=== PATIENT | female | born 1980 | race Caucasian/White ===

== ENCOUNTER 2017-03-27 17:58 | Emergency (ER) | payer MEDICARE, MEDICAID ==
[~2017-03-27] VITALS: Ht 152.4 cm; Wt 56.0 kg
[2017-03-27 18:03] VITALS: BP 131/89; PULSE 100; RESP 20; TEMP 98.2; O2SAT 100
[2017-03-27] MEDS ORDERED: CYAN1TAB24 (18:26)
[2017-03-27] MEDS ORDERED: AMLO5 PO (18:26)
[2017-03-27] MEDS ORDERED: TACR5 PO (18:26)
[2017-03-27] MEDS ORDERED: ZOLO100T PO (18:26)
[2017-03-27] MEDS ORDERED: XANA1TAB2 PO (18:26)
[2017-03-27] MEDS ORDERED: NEUR300C PO (18:26)
[2017-03-27] MEDS ORDERED: LEVEMIR SQ (18:26)
[2017-03-27] MEDS ORDERED: MAGNCAP2 PO (18:26)
[2017-03-27] MEDS ORDERED: ZETI10TA5 PO (18:26)
[2017-03-27] MEDS ORDERED: HYDR-3583 PO (18:26)
[2017-03-27] MEDS ORDERED: VALS1TAB64 PO (18:26)
[2017-03-27] MEDS ORDERED: SIRO2 PO (18:26)
[2017-03-27] MEDS ORDERED: PRED5TAB PO (18:26)
[2017-03-27] MEDS ORDERED: METO100T9 PO (18:26)
[2017-03-27] MEDS ORDERED: AMIT25TA9 PO (18:26)
[2017-03-27] MEDS ORDERED: TETANUS/DIPHTHERIA TOXOID ADULT 0.5 ML VIAL IM ONE (18:30)
[2017-03-27] MEDS ORDERED: DOXY100C PO (18:33)
[2017-03-27] MEDS ORDERED: CEPH-460 PO (18:33)
--- NOTE | 2017-03-27 18:42 | PD ---
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 Patient [place] a fishing hook randomly cut her left arm. Patient does not know where the hook came from. She immediately went home and soaked the wound and hydrogen peroxide before applying a bandage. Because patient is on antirejection medications and immunocompromise, she has concern for infection. There is no increased warmth, drainage, pain, redness, or induration at this time. Unknown last tetanus. Patient reports she had serum creatinine drawn 4 days ago and her level was 1.3. PFSH Past Medical History Cardiomyopathy: Yes Cardiovascular Problems: Yes (cardiomyopathy) Diabetes: Yes Patient Takes Glucophage: No Diminished Hearing: No Medical other: Yes (Neuropathy, Fabry's Disease) ?: Not LMP: irregular Past Surgical History Other Surgery: Yes (Kidney transplant, infusa port) Social History Alcohol Use: No Tobacco Use: No Substance Use: No Allergies-Medications (Allergen,Severity, Reaction): Coded Allergies: Clindamycin (Verified Allergy, Unknown, cdiff, 03/27/17) Gentamicin (Verified Allergy, Unknown, hives, 03/27/17) Levaquin (Verified Allergy, Unknown, bone pain, 03/27/17) Venofer (Verified Allergy, Unknown, hives, 03/27/17) Reported Meds & Prescriptions Reported Meds & Active Scripts Active Keflex (Cephalexin) 500 Mg Capsule 500 Mg PO Q6H 7 Days Doxycycline Hyclate 100 Mg Cap 100 Mg PO BID Reported Levemir Inj (Insulin Detemir) 1,000 unit/ 10 ML Vial 1 Units SQ Do not mix with any other Insulin. Hydrocodone-Acetaminophen 10-325 mg Tab 1 Tab PO Q4H PRN Zoloft (Sertraline HCl) 100 Mg Tab 100 Mg PO BID Xanax (Alprazolam) 1 Mg Tab 1 Mg PO Q8H PRN Amitriptyline (Amitriptyline HCl) 25 Mg Tab 25 Mg PO HS Zetia (Ezetimibe) 10 Mg Tab 10 Mg PO DAILY Magnesium & Vitamin D (Magnesium Oxide-Cholecalciferol) 500-3,000 Mg-Unit Cap 500 Mg PO TID Neurontin (Gabapentin) 300 Mg Cap 300 Mg PO TID B12 (Cyanocobalamin) 1,000 Mcg Tab Prednisone 5 Mg Tab 5 Mg PO DAILY Metoprolol Succinate ER 24 HR (Metoprolol Succinate) 100 Mg Tab 100 Mg PO DAILY Valsartan 80 Mg Tab 100 Mg PO DAILY Norvasc (Amlodipine Besylate) 5 Mg Tab 5 Mg PO DAILY Rapamune (Sirolimus) 2 Mg Tab 2 Mg PO DAILY Prograf (Tacrolimus) 5 Mg Cap 5 Mg PO BID Review of Systems Except as stated in HPI: all other systems reviewed are Neg Physical Exam Narrative GENERAL: Well-nourished, well-developed female in no acute distress. Afebrile. Ambulatory. SKIN: Focused skin assessment warm/dry. There is a 3 cm superficial skin tear to the left dorsal forearm. No increased edema, erythema, drainage, or lymphangitis. HEAD: Normocephalic. EYES: No scleral icterus. No injection or drainage. NECK: Supple, trachea midline. No JVD or lymphadenopathy. CARDIOVASCULAR: Regular rate and rhythm without murmurs, gallops, or rubs. RESPIRATORY: Breath sounds equal bilaterally. No accessory muscle use. PSYCHIATRIC: No delusional thought processes. No hallucinations. Data Data Last Documented VS Vital Signs Date Time Temp Pulse Resp B/P Pulse Ox O2 Delivery O2 Flow Rate FiO2 03/27/17 18:03 98.2 100 20 131/89 100 Orders Tetanus/Diphtheria Tox Adult (Tetanus/Di (03/27/17 18:30) [facility] Medical Decision Making Medical Screen Exam Complete: Yes Emergency Medical Condition: Yes Medical Record Reviewed: Yes Differential Diagnosis Skin tear, tetanus prophylaxis, abrasion, laceration Narrative Course 37-year-old female with a history of Fabry disease presents to the emergency room for evaluation of a laceration to her left dorsal forearm that occurred earlier today. Patient [place] the beach when a fishing hook from an unknown source snatcher skin. Patient immediately went home and washed and hydrogen peroxide. She is immunocompromised and on antirejection medications and is concerned for infection. Physical exam reveals a 3 cm superficial skin tear to the left dorsal forearm. There is no drainage, erythema, edema, induration, or lymphangitis. Tetanus was updated. Given patient's immunocompromised state, she will be discharged with prescriptions to cover for vibrio and strep in case of infection; it was recommended that she does not start antibiotics unless infection develops. Keflex has renal adjustment and patient's estimated creatinine clearance is 53 which according to manufacturers service representative is safe. Doxycycline has interaction with her magnesium that may decrease doxycycline's effect. Patient was told not to take doxycycline within 2 hours of taking magnesium. Patient was discharged with wound care instructions. She plans to follow up with her primary care physician before starting them. She understands and agrees to plan. Diagnosis Primary Impression: Skin tear of left upper extremity Referrals: Primary Care Physician Patient Instructions: General Instructions, Skin Tear (ED) Additional Instructions: Rest and drink plenty of fluids. If infection develops, start antibiotics. Keep wound clean and dry. Apply topical antibiotics daily. Take doxycycline as directed, until gone. Take this medication 2 hours before or after the magnesium. This medication will make you burn. Avoid the sun while taking this medication. Take Keflex as directed, until gone. Follow up with a primary care physician. Return to emergency room for worsening symptoms, as discussed. Med/Other Pt SpecificInfo: Prescription(s) given Scripts Cephalexin (Keflex)500 Mg [id number] Mg PO Q6H 7 Days Ref 0 Prov:Wilfred Gold MD 03/27/17 Doxycycline Hyclate 100 Mg [id number] Mg PO BID #28 CAP Ref 0 Prov:Wilfred Gold MD 03/27/17 Disposition: 01 DISCHARGE HOME Condition: Stable Radha Mendoza Mar 27, 2017 18:42
== END 2017-03-27 19:12 | disposition home or self-care (01) ==
LOC: PHEFT 17:58
DX: S51.812A Laceration without foreign body of left forearm, initial encounter (principal); W26.8XXA Contact with other sharp object(s), not elsewhere classified, initial encounter; Y92.832 Beach as the place of occurrence of the external cause; Z23 Encounter for immunization; Z94.0 Kidney transplant status; I42.9 Cardiomyopathy, unspecified; E11.9 Type 2 diabetes mellitus without complications; E75.21 Fabry (-Anderson) disease
CPT/HCPCS: 90471; 90714

== ENCOUNTER 2018-04-04 15:45 | Inpatient (IN) | payer MEDICARE, MEDICAID ==
[~2018-04-04] VITALS: Ht 152.4 cm; Wt 44.5 kg
[~2018-04-04 15:45] MED LIST: AMIT25TA9 PO; AMLO5 PO; CEPH-460 PO; CYAN1TAB24; DOXY100C PO; EZET10 PO; HYDR-3583 PO; LEVEMIR SQ; MAGNCAP2 PO; METO1TAB43 PO; NEUR300C PO; PRED5TAB PO; SIRO2 PO; TACR5 PO; VALS1TAB64 PO; XANA1TAB2 PO; ZOLO100T PO
--- NOTE | 2018-04-04 17:16 | PD ---
HPI Chief Complaint: Psychiatric Symptoms Time Seen by Provider: 17:13 Travel History International Travel<30 days: No Contact w/Intl Traveler<30days: No Traveled to known affect area: No History of Present Illness HPI Patient 38-year-old female presents emergency department for evaluation psychiatrically. According to law office manager she is under Starteed act. There is no Starteed act paperwork that the patient presents with. According to patient she was recently admitted to [facility] in [facility] for sepsis. States she was admitted to the ICU and she was septic from a port in her chest. She states that she could not sleep one night and so she ground up some Xanax and put in a syringe and injected herself with it in the bathroom. She states she was just trying to get some sleep because she was sick of everybody else. When asked if she was going to try and kill herself she said no. She did lock herself in the bathroom and she states that they had to break down the door to get to her. She denies any acute physical complaints and states that she only has her "chronic pain". PFSH Past Medical History Cardiomyopathy: Yes Cardiovascular Problems: Yes (cardiomyopathy) Diabetes: Yes Diminished Hearing: No Past Surgical History Other Surgery: Yes (Kidney transplant, infusa port) Social History Alcohol Use: No Tobacco Use: No Substance Use: No Allergies-Medications (Allergen,Severity, Reaction): Coded Allergies: clindamycin (Unverified Allergy, Unknown, cdiff, 05/27/17) ferumoxytol (Unverified Allergy, Unknown, hives, 05/27/17) gentamicin (Unverified Allergy, Unknown, hives, 05/27/17) iron (Unverified Allergy, Unknown, hives, 05/27/17) levofloxacin (Unverified Allergy, Unknown, bone pain, 05/27/17) Reported Meds & Prescriptions Reported Meds & Active Scripts Active Keflex (Cephalexin) 500 Mg Capsule 500 Mg PO Q6H 7 Days Doxycycline Hyclate 100 Mg Cap 100 Mg PO BID Reported Levemir Inj (Insulin Detemir) 1,000 unit/ 10 ML Vial 1 Units SQ Do not mix with any other Insulin. Hydrocodone-Acetaminophen 10-325 mg Tab 1 Tab PO Q4H PRN Zoloft (Sertraline HCl) 100 Mg Tab 100 Mg PO BID Xanax (Alprazolam) 1 Mg Tab 1 Mg PO Q8H PRN Amitriptyline (Amitriptyline HCl) 25 Mg Tab 25 Mg PO HS Zetia (Ezetimibe) 10 Mg Tab 10 Mg PO DAILY Magnesium & Vitamin D (Magnesium Oxide-Cholecalciferol) 500-3,000 Mg-Unit Cap 500 Mg PO TID Neurontin (Gabapentin) 300 Mg Cap 300 Mg PO TID B12 (Cyanocobalamin) 1,000 Mcg Tab Prednisone 5 Mg Tab 5 Mg PO DAILY Metoprolol Succinate ER 24 HR (Metoprolol Succinate) 100 Mg Tab 100 Mg PO DAILY Valsartan 80 Mg Tab 100 Mg PO DAILY Norvasc (Amlodipine Besylate) 5 Mg Tab 5 Mg PO DAILY Rapamune (Sirolimus) 2 Mg Tab 2 Mg PO DAILY Prograf (Tacrolimus) 5 Mg Cap 5 Mg PO BID Review of Systems Except as stated in HPI: all other systems reviewed are Neg Physical Exam Narrative GENERAL: Well-developed well-nourished no obvious distress SKIN: Focused skin assessment warm/dry. HEAD: Atraumatic. Normocephalic. EYES: Pupils equal and round. No scleral icterus. No injection or drainage. ENT: No nasal bleeding or discharge. Mucous membranes pink and moist. NECK: Trachea midline. No JVD. CARDIOVASCULAR: Regular rate and rhythm. No murmur appreciated. RESPIRATORY: No accessory muscle use. Clear to auscultation. Breath sounds equal bilaterally. GASTROINTESTINAL: Abdomen soft, non-tender, nondistended. Hepatic and splenic margins not palpable. MUSCULOSKELETAL: No obvious deformities. No clubbing. No cyanosis. No edema. NEUROLOGICAL: Awake and alert. No obvious cranial nerve deficits. Motor grossly within normal limits. Normal speech. PSYCHIATRIC: Angry mood and angry affect.; insight and judgment normal. Denies suicidal or homicidal ideation. Data Data Last Documented VS Vital Signs Date Time Temp Pulse Resp B/P (MAP) Pulse Ox O2 Delivery O2 Flow Rate FiO2 04/04/18 18:20 63 18 125/66 (85) 99 Room Air Orders Orders Hydromorphone (Dilaudid) (04/04/18 17:20) Zolpidem (Ambien) (04/04/18 21:00) Amlodipine (Norvasc) (04/05/18 09:00) Levetiracetam (Keppra) (04/04/18 21:00) Pantoprazole (Protonix) (04/05/18 09:00) Sertraline (Zoloft) (04/05/18 09:00) Acetamin-Hydrocod 325-10 Mg ([place] 10-32 (04/04/18 17:15) Alprazolam (Xanax) (04/04/18 21:00) Metoprolol Succinate Er (Toprol Xl) (04/05/18 09:00) Gabapentin (Neurontin) (04/04/18 18:00) Prednisone (Deltasone) (04/05/18 09:00) Sirolimus (Rapamune) (04/05/18 09:00) Tacrolimus (Prograf) (04/04/18 21:00) Valsartan (Diovan) (04/05/18 09:00) Diet Regular Basic (04/04/18 Dinner) MDM Medical Decision Making Medical Screen Exam Complete: Yes Emergency Medical Condition: Yes Differential Diagnosis Suicide attempt, substance abuse, poor social circumstance. Narrative Course Patient being room to the emergency department, a copy of the Maldonado act as faxed without the signature portion. States that she tried to kill herself by injecting drugs into her system. The only other paperwork that she arrived with was a discharge packet with a diagnosis of hypoglycemia, there was no other paperwork available for this patient no physician notes. I have asked my infantry unit leader to attempt to reach [facility] for documentation and so far unsuccessful. The patient was discussed with Dr. Chowdary and he states that he accepted this patient for transfer. Carol AGUILAR is still here will evaluate the patient expediently to determine if she meets Maldonado act criteria or not as I do not have a valid Maldonado act at this time. Received notice from [facility] was that Dr. Kasper was the discharging physician cannot be reached as there shift ended prior to the patient arriving here. I have been told that they a service parts driver is bringing over the maldonado act now. None-the less. She has no medical complaints requiring further workup at this time. She has apparently already been medically evaluated at OSH as well. Maldonado act has arrived from OSH. Properly filled out. Further management by psychiatry. Diagnosis Primary Impression: Benzodiazepine overdose Condition: Emanuel Hogue MD Apr 04, 2018 17:16
[2018-04-04] MEDS: GABAPENTIN 300 MG CAP PO SCH (18:00)
[2018-04-04 18:20] VITALS: BP 125/66; PULSE 63; RESP 18; O2SAT 99
--- NOTE | 2018-04-04 19:19 | PD ---
History of Present Illness Chief Complaint: Psychiatric Symptoms Time Seen by Provider: 16:15 Travel History International Travel<30 Days: No Contact w/Intl Traveler<30days: No Known affected area: No Legal Status Legal Status: Maldonado Act Maldonado Act Signed By: History of Present Illness: History of Present Illness HPI Patient 38-year-old, , unemployed, female, with hx of Fabry's Disease , s/p kidney transplant , hypoglycemia, neuropathy, chronic pain, currently living with her ex boyfriend who presents emergency department as a transfer from [facility] in [facility]. The patient was admitted to the hospital for treatment of sepsis from a port in her chest. While being treated it is reported that she went into the bathroom, locked the door, ground up an unknown amount of her Xanax and injected it into her IV. She was found unresponsive and required intubation and ICU admission. She was placed under a BA dated March 24, 2018 at 0950 am. She is transferred here for psychiatric evaluation. Patient is seen. Irritable and only minimally cooperative with evaluation. She denies that she took the Xanax as a suicidal attempt but that " I wanted to take a nap". Other than this the patient refuses to provides any other information. Patient gives verbal permission to call her ex boyfriend, Isaac at [phone]. She is living with him and if she were to be discharged would go to his home. He has some concerns regarding her safety reports that the patient has sent him some text messages in the last few days that are of concern to him. These messages state things such as " I'm tired of fighting ". He does state that " she swears to me that she was not trying to kill herself at the hospital". He is also concerned because she has to move back to [place] since she is not working and has no income. The patient's father, Noé Kang called. Patient refused to give permission for us to speak with him. he was informed that we could not provide him with any information. Case is consulted with Dr. Chowdary. We will monitor patient here in j pod. Will attempt to get further information from patient in the morning. Remains under A BA. [facility] Past Medical History Cardiomyopathy: Yes Cardiovascular Problems: Yes (cardiomyopathy) Diabetes: Yes Diminished Hearing: No Past Surgical History Other Surgery: Yes (Kidney transplant, infusa port) Psychiatric History Psychiatric History Hx Psychiatric Treatment: [place] any previous. Is prescribed medication by PCP History of Inpatient Treatment: No Guns or firearms in home: No Social History Single, unemployed. Hx Alcohol Use: No Hx Tobacco Use: No Hx Substance Use: No Substance Use Type: Marijuana, Benzos (Valium,Xanax), Synth Opiates-Pain Pills Hx of Substance Use Treatment: No Family Psychiatric History Unknown Allergies-Medications (Allergen,Severity, Reaction): Coded Allergies: clindamycin (Unverified Allergy, Unknown, cdiff, 05/27/17) ferumoxytol (Unverified Allergy, Unknown, hives, 05/27/17) gentamicin (Unverified Allergy, Unknown, hives, 05/27/17) iron (Unverified Allergy, Unknown, hives, 05/27/17) levofloxacin (Unverified Allergy, Unknown, bone pain, 05/27/17) Reported Meds & Prescriptions Reported Meds & Active Scripts Active Keflex (Cephalexin) 500 Mg Capsule 500 Mg PO Q6H 7 Days Doxycycline Hyclate 100 Mg Cap 100 Mg PO BID Reported Levemir Inj (Insulin Detemir) 1,000 unit/ 10 ML Vial 1 Units SQ Do not mix with any other Insulin. Hydrocodone-Acetaminophen 10-325 mg Tab 1 Tab PO Q4H PRN Zoloft (Sertraline HCl) 100 Mg Tab 100 Mg PO BID Xanax (Alprazolam) 1 Mg Tab 1 Mg PO Q8H PRN Amitriptyline (Amitriptyline HCl) 25 Mg Tab 25 Mg PO HS Zetia (Ezetimibe) 10 Mg Tab 10 Mg PO DAILY Magnesium & Vitamin D (Magnesium Oxide-Cholecalciferol) 500-3,000 Mg-Unit Cap 500 Mg PO TID Neurontin (Gabapentin) 300 Mg Cap 300 Mg PO TID B12 (Cyanocobalamin) 1,000 Mcg Tab Prednisone 5 Mg Tab 5 Mg PO DAILY Metoprolol Succinate ER 24 HR (Metoprolol Succinate) 100 Mg Tab 100 Mg PO DAILY Valsartan 80 Mg Tab 100 Mg PO DAILY Norvasc (Amlodipine Besylate) 5 Mg Tab 5 Mg PO DAILY Rapamune (Sirolimus) 2 Mg Tab 2 Mg PO DAILY Prograf (Tacrolimus) 5 Mg Cap 5 Mg PO BID Review of Systems ROS Limitations: Uncooperative Constitutional: COMPLAINS OF: Fatigue, Change in appetite Mental Status Examination Appearance: Disheveled Consciousness: Alert Orientation: x4 Motor Activity: Other (in bed) Speech: Unremarkable Language: Adequate Fund of Knowledge: Adequate Attention and Concentration: Adequate Memory: Unremarkable Mood: Angry, Irritable Affect: Appropriate Thought Process & Associations: Intact, Logical, Goal directed Thought Content: Appropriate Hallucination Type: None Delusion Type: None Suicidal Ideation: No Suicidal Plan: No Suicidal Intention: No Homicidal Ideation: No Homicidal Plan: No Homicidal Intention: No Insight: Poor Judgment: Impulsive MDM Medical Decision Making Medical Record Reviewed: Yes Assessment/Plan Patient 38-year-old, , unemployed, female, with hx of Fabry's Disease , s/p kidney transplant , hypoglycemia, neuropathy, chronic pain, currently living with her ex boyfriend who presents emergency department as a transfer from [facility] in [facility]. The patient was admitted to the hospital for treatment of sepsis from a port in her chest. While being treated it is reported that she went into the bathroom, locked the door, ground up an unknown amount of her Xanax and injected it into her IV. She was found unresponsive and required intubation and ICU admission. She was placed under a BA dated March 24, 2018 at 0950 am. She is transferred here for psychiatric evaluation This morning the patient remains irritable, only minimally cooperative, minimizing recent overdose. Patient seen by Dr Chowdary. Recommend inpatient hospitalization for further evaluation, stabilization and treatment. . Orders Orders Hydromorphone (Dilaudid) (04/04/18 17:20) Zolpidem (Ambien) (04/04/18 21:00) Amlodipine (Norvasc) (04/05/18 09:00) Levetiracetam (Keppra) (04/04/18 21:00) Pantoprazole (Protonix) (04/05/18 09:00) Sertraline (Zoloft) (04/05/18 09:00) Acetamin-Hydrocod 325-10 Mg ([place] 10-32 (04/04/18 17:15) Alprazolam (Xanax) (04/04/18 21:00) Metoprolol Succinate Er (Toprol Xl) (04/05/18 09:00) Gabapentin (Neurontin) (04/04/18 18:00) Prednisone (Deltasone) (04/05/18 09:00) Sirolimus (Rapamune) (04/05/18 09:00) Tacrolimus (Prograf) (04/04/18 21:00) Valsartan (Diovan) (04/05/18 09:00) Diet Regular Basic (04/04/18 Dinner) Results Vital Signs Date Time Temp Pulse Resp B/P (MAP) Pulse Ox O2 Delivery O2 Flow Rate FiO2 04/04/18 18:20 63 18 125/66 (85) 99 Room Air Diagnosis Primary Impression: Benzodiazepine overdose Additional Impression: Adjustment disorder Admitting Information Admitting Physician Requests: Admit Condition: Stable Problem Qualifiers Additional Impression: Adjustment disorder Qualified Codes: F43.25 - Adjustment disorder with mixed disturbance of emotions and conduct Carol Cardozo Apr 04, 2018 19:19
[2018-04-04] MEDS ORDERED: ZOLPIDEM TARTRATE 10 MG TAB PO PRN (21:00)
[2018-04-04] MEDS: TACROLIMUS 1 MG CAP PO SCH (21:00)
[2018-04-04] MEDS: levETIRAcetam 500 MG TAB PO SCH (21:00)
[2018-04-04] MEDS: ALPRAZolam 1 MG TAB PO SCH (21:00)
[2018-04-04] MEDS: ACETAMINOPHEN/HYDROcodone 325 MG/10 MG TAB PO PRN (21:19)
[2018-04-04 22:13] VITALS: BP 119/67; PULSE 64; RESP 17; O2SAT 97
[2018-04-05 02:33] VITALS: BP 140/71; PULSE 54; RESP 18; TEMP 98.6; O2SAT 100
[2018-04-05] MEDS ORDERED: LEVE500T8 PO (04:16)
[2018-04-05] MEDS ORDERED: ROSU1TAB6 PO (05:05)
[2018-04-05] MEDS ORDERED: TOPR50TA PO (05:15)
[2018-04-05] MEDS ORDERED: CEFD300C PO (05:18)
[2018-04-05] MEDS: TACROLIMUS 1 MG CAP PO SCH ×2 (06:00→18:17)
[2018-04-05 06:10] VITALS: BP 137/80; PULSE 71; RESP 17; TEMP 98.2; O2SAT 100
[2018-04-05] MEDS: levETIRAcetam 500 MG TAB PO SCH ×2 (09:00→21:12)
[2018-04-05] MEDS: SIROLIMUS 2 MG TAB PO SCH (09:00)
[2018-04-05 09:10] VITALS: BP 130/88; PULSE 72; RESP 18; O2SAT 100
[2018-04-05] MEDS: SERTRALINE HCL 100 MG TAB PO SCH (09:47)
[2018-04-05] MEDS: predniSONE 10 MG TAB PO SCH (09:47)
[2018-04-05] MEDS: PANTOPRAZOLE SOD 40 MG DELAYED RELEASE TAB PO SCH (09:48)
[2018-04-05] MEDS: ALPRAZolam 1 MG TAB PO SCH ×2 (09:48→21:12)
[2018-04-05] MEDS: GABAPENTIN 300 MG CAP PO SCH ×3 (09:48→17:39)
[2018-04-05] MEDS: METOPROLOL SUCCINATE 50 MG EXTENDED RELEASE TAB PO SCH (09:48)
[2018-04-05] MEDS: VALSARTAN 80 MG TAB PO SCH (09:48)
[2018-04-05] MEDS: ACETAMINOPHEN/HYDROcodone 325 MG/10 MG TAB PO PRN ×2 (10:08→21:14)
[2018-04-05] MEDS ORDERED: ALUMINUM/MAGNESIUM/SIMETH 30 ML CUP PO PRN (12:45)
[2018-04-05] MEDS ORDERED: MAGNESIUM HYDROXIDE SUSP 30 ML CUP PO PRN (12:45)
[2018-04-05] MEDS ORDERED: ACETAMINOPHEN 325 MG TAB PO PRN (12:45)
[2018-04-05 15:23] VITALS: BP 121/69; PULSE 57; RESP 18; TEMP 98.2; O2SAT 100
--- NOTE | 2018-04-05 15:24 | PD.CONS ---
HPI Service [facility] Hospitalists Consult Requested By Psychiatry Reason for Consult Medical management, complicated medical history, recent sepsis Primary Care Physician Ludwig Kruger Mai, MD Diagnoses: History of Present Illness 38-year-old female with history Fabry's disease, diabetes, depression , anxiety, neuropathy, HTN, cardiomyopathy, and recent sepsis secondary to port infection admitted to psychiatry under Maldonado Act. Hospitalist service has been consulted for medical management. The patient was recently hospitalized on 03/01 at [facility] in [place] for severe sepsis secondary to port infection. She was bacteremic with Sphingomonas and Klebsiella and Port-A-Cath cultures after port removal grew Enterobacter cloacae and Sphingomonas. She was treated with a course of IV meropenem and blood cultures remain negative. She was transitioned to Cefdinir prior to transfer to [place] today for a total of 14 days. During her hospital stay, she reportedly locked herself in the bathroom, crushed up Xanax, and injected herself. The door had to be broken down and the patient had to be intubated and transferred to the critical care unit. She had reportedly fallen and hit her head suffering a small subarachnoid hemorrhage. The patient states she "wanted to take a nap" and was not suicidal. Upon evaluation today in the J pod, the patient was laying down with covers over her head in the dark. She did not want to provide much history and she refused physical exam. Her main concern was not being given Dilaudid. Review of Systems ROS Limitations: Uncooperative Past Family Social History Allergies: Coded Allergies: clindamycin (Unverified Allergy, Unknown, cdiff, 05/27/17) ferumoxytol (Unverified Allergy, Unknown, hives, 05/27/17) gentamicin (Unverified Allergy, Unknown, hives, 05/27/17) iron (Unverified Allergy, Unknown, hives, 05/27/17) levofloxacin (Unverified Allergy, Unknown, bone pain, 05/27/17) Past Medical History Fabry's disease Neuropathy Diabetes Hypertension Cardiomyopathy CKD Polysubstance abuse Depression Anxiety Past Surgical History Port placement and removal Renal transplant Reported Medications Cefdinir 300 Mg Cap 300 Mg PO BID Toprol XL (Metoprolol Succinate) 50 Mg Tab 50 Mg PO DAILY Rosuvastatin (Rosuvastatin Calcium) 10 Mg Tab 10 Mg PO HS Levetiracetam 500 Mg Tab 500 Mg PO BID Levemir Inj (Insulin Detemir) 1,000 unit/ 10 ML Vial 1 Units SQ Do not mix with any other Insulin. Hydrocodone-Acetaminophen 10-325 mg Tab 1 Tab PO Q4H PRN Zoloft (Sertraline HCl) 100 Mg Tab 100 Mg PO BID Xanax (Alprazolam) 1 Mg Tab 1 Mg PO Q8H PRN Amitriptyline (Amitriptyline HCl) 25 Mg Tab 25 Mg PO HS Magnesium & Vitamin D (Magnesium Oxide-Cholecalciferol) 500-3,000 Mg-Unit Cap 500 Mg PO TID Neurontin (Gabapentin) 300 Mg Cap 600 Mg PO TID B12 (Cyanocobalamin) 1,000 Mcg Tab Prednisone 5 Mg Tab 10 Mg PO DAILY Valsartan 80 Mg Tab 100 Mg PO DAILY Norvasc (Amlodipine Besylate) 5 Mg Tab 5 Mg PO DAILY Rapamune (Sirolimus) 2 Mg Tab 2 Mg PO DAILY Prograf (Tacrolimus) 5 Mg Cap 5 Mg PO BID Active Ordered Medications Acetaminophen (Tylenol) 650 mg Q4H PRN PO; Start 04/05/18 at 12:45 Acetaminophen/ Hydrocodone Bitart (Celestine 10-325 Mg) 1 tab Q4H PRN PO Last administered on 04/05/18at 10:08; Admin Dose 1 TAB; Start 04/04/18 at 17:15 Al Hydrox/Mg Hydrox/Simethicone (Mag-Al Plus Susp Liq) 30 ml Q6H PRN PO; Start 04/05/18 at 12:45 Alprazolam (Xanax) 1 mg BID PO Last administered on 04/05/18at 09:48; Admin Dose 1 MG; Start 04/04/18 at 21:00 Amlodipine Besylate (Norvasc) 10 mg DAILY PO Last administered on 04/05/18at 09: 48; Admin Dose 10 MG; Start 04/05/18 at 09:00 Gabapentin (Neurontin) 600 mg TID PO Last administered on 04/05/18at 14:57; Admin Dose 600 MG; Start 04/04/18 at 18:00 Hydromorphone HCl (Dilaudid) 2 mg Q4H PRN PO; Start 04/04/18 at 17:20 Levetriacetam (Keppra) 500 mg Q12HR PO Last administered on 04/04/18at 21:00; Admin Dose 500 MG; Start 04/04/18 at 21:00 Magnesium Hydroxide (Milk Of Magnniko Liq) 30 ml DAILY PRN PO; Start 04/05/18 at 12:45 Metoprolol Succinate (Toprol Xl) 50 mg DAILY PO Last administered on 04/05/18at 09:48; Admin Dose 50 MG; Start 04/05/18 at 09:00 Pantoprazole Sodium (Protonix) 40 mg DAILY PO Last administered on 04/05/18at 09: 48; Admin Dose 40 MG; Start 04/05/18 at 09:00 Prednisone (Deltasone) 10 mg DAILY PO Last administered on 04/05/18at 09:47; Admin Dose 10 MG; Start 04/05/18 at 09:00 Sertraline HCl (Zoloft) 100 mg DAILY PO Last administered on 04/05/18at 09:47; Admin Dose 100 MG; Start 04/05/18 at 09:00 Sirolimus (Rapamune) 2 mg DAILY@06 PO Last administered on 04/05/18at 09:00; Admin Dose 2 MG; Start 04/05/18 at 09:00 Tacrolimus (Prograf) 1 mg BID@,18 PO Last administered on 04/04/18at 21:00; Admin Dose 1 MG; Start 04/04/18 at 21:00 Valsartan (Diovan) 80 mg DAILY PO Last administered on 04/05/18at 09:48; Admin Dose 80 MG; Start 04/05/18 at 09:00 Zolpidem Tartrate (Ambien) 10 mg HS PRN PO; Start 04/04/18 at 21:00 Family History Patient does not provide family history Social History Lives with her ex-boyfriend Smokes half pack per day Denies alcohol abuse Denies recreational drug use and states she "only takes what is prescribed" Physical Exam Vital Signs Vital Signs Date Time Temp Pulse Resp B/P (MAP) Pulse Ox O2 Delivery O2 Flow Rate FiO2 04/05/18 09:10 72 18 130/88 (102) 100 Room Air 04/05/18 06:10 98.2 71 17 137/80 (99) 100 Room Air 04/05/18 02:33 98.6 54 18 140/71 (94) 100 Room Air 04/04/18 22:13 64 17 119/67 (84) 97 Room Air 04/04/18 18:20 63 18 125/66 (85) 99 Room Air Physical Exam PATIENT REFUSED EXAM Assessment and Plan Assessment and Plan 38-year-old complicated female patient with history of Fabry's disease, CKD, DM , HTN, depression, anxiety, neuropathy, and recent treatment for bacteremia secondary to port infection admitted to psychiatry under Maldonado act after she intentionally injected Xanax into her IV and locked herself in the bathroom during previous hospitalization. She had apparently fell and sustained a small subarachnoid hemorrhage for which she has been treated prophylactically with Keppra. 1. Recent bacteremia and port infection -s/p port removal -Hospitalization records reviewed -Patient completed IV course of meropenem -She will need to complete an additional 14 days of Cefdinir 2. Fabry's disease -Resume tacrolimus and sirolimus -Resume prednisone -Dilaudid as needed -Periodically monitor renal function 3. HTN -Resume amlodipine, valsartan, and metoprolol 4. DM -SSI per protocol 5. Depression/anxiety -Resume home meds -Further management per psychiatry DVT prophylaxis: Encourage ambulation Anusha Scott MD Apr 05, 2018 15:24
[2018-04-05] MEDS ORDERED: DEXTROSE 50% IN WATER 50 ML VIAL(D50) IV PUSH PRN (16:00)
[2018-04-05] MEDS ORDERED: GLUCAGON 1 MG/ML VIAL OTHER PRN (16:00)
[2018-04-05] MEDS: INSULIN ASPART SUPPLEMENTAL SCALE SQ SCH ×2 (17:00→21:00)
[2018-04-05] MEDS: HYDROmorphone HCL 2 MG TAB PO PRN ×2 (17:39→22:47)
[2018-04-05 18:10] VITALS: BP 139/73; PULSE 66; RESP 18; TEMP 97.7; O2SAT 99
[2018-04-05] MEDS: CEFIXIME 400 MG CAP PO SCH (18:17)
[2018-04-05] MEDS ORDERED: levETIRAcetam 500 MG TAB PO SCH (21:00)
[2018-04-06 03:00] VITALS: BP 109/62; PULSE 60
[2018-04-06] MEDS: HYDROmorphone HCL 2 MG TAB PO PRN ×5 (03:13→22:27)
[2018-04-06 05:37] VITALS: BP 108/62; PULSE 56; RESP 16; TEMP 97.8; O2SAT 100
[2018-04-06] MEDS: SIROLIMUS 2 MG TAB PO SCH (05:56)
[2018-04-06] MEDS: TACROLIMUS 1 MG CAP PO SCH (05:57)
[2018-04-06] MEDS: ACETAMINOPHEN/HYDROcodone 325 MG/10 MG TAB PO PRN ×2 (05:57→21:19)
[2018-04-06] MEDS: INSULIN ASPART SUPPLEMENTAL SCALE SQ SCH ×4 (08:00→20:38)
[2018-04-06] MEDS: METOPROLOL SUCCINATE 50 MG EXTENDED RELEASE TAB PO SCH ×2 (09:00→20:38)
[2018-04-06] MEDS: levETIRAcetam 500 MG TAB PO SCH ×2 (09:00→20:38)
[2018-04-06] MEDS: VALSARTAN 80 MG TAB PO SCH (09:00)
[2018-04-06] MEDS ORDERED: predniSONE 5 MG TAB PO SCH (09:00)
[2018-04-06] MEDS: predniSONE 10 MG TAB PO SCH (09:04)
[2018-04-06] MEDS: ALPRAZolam 1 MG TAB PO SCH ×2 (09:04→20:36)
[2018-04-06] MEDS: GABAPENTIN 300 MG CAP PO SCH ×3 (09:05→18:21)
[2018-04-06] MEDS: SERTRALINE HCL 100 MG TAB PO SCH (09:09)
[2018-04-06] MEDS: PANTOPRAZOLE SOD 40 MG DELAYED RELEASE TAB PO SCH (09:09)
--- NOTE | 2018-04-06 12:01 | HHI.PR ---
Subjective Remarks Pt seen and examined for medical management of multiple medical problems including Fabry's disease, recent sepsis, HTN, DM, chronic pain, CHF, and recent SAH. She has no acute complaints. Repots she is feeling fine. She has requests to fix some of her home meds; she states she takes tacrolimus 5 mg BID , magnesium 1500 mg, gabapentin 300 mg TIB, and her metoprolol in the evening. She states since losing a significant amount of weight her BP has been running lower. She would prefer not to be on Keppra because of side effects and possible interactions with her other meds. Would like to speak with a neurologist. Objective Vital Signs Date Time Temp Pulse Resp B/P (MAP) Pulse Ox O2 Delivery O2 Flow Rate FiO2 04/06/18 05:37 97.8 56 16 108/62 (77) 100 04/06/18 03:00 60 109/62 (78) 04/05/18 18:10 97.7 66 18 139/73 (95) 99 04/05/18 15:23 98.2 57 18 121/69 (86) 100 04/05/18 15:19 I/O 04/05/18 04/05/18 04/05/18 04/06/18 04/06/18 04/06/18 07:00 15:00 23:00 07:00 15:00 23:00 Intake Total 360 ml Balance 360 ml Intake Oral 360 ml Objective Remarks GENERAL: WN, WD female in NAD. SKIN: Warm and dry. Incision over L chest C/D/I. HEENT: AT/NC. Pupils equal and round. MMM. NECK: Supple no tender LAD or JVD. HEART: RRR no m/r/g. LUNGS: CTAB without wheezes or crackles. ABDOMEN: +BS, soft, NT, ND. EXTREMITIES: No LE edema. NEURO: Awake and alert. Nonfocal. PSYCH: Appropriate mood and affect. A/P Assessment and Plan 38-year-old complicated female patient with history of Fabry's disease, CKD, DM , HTN, depression, anxiety, neuropathy, and recent treatment for bacteremia secondary to port infection admitted to psychiatry under Maldonado act after she intentionally injected Xanax into her IV and locked herself in the bathroom during previous hospitalization. She had apparently fell and sustained a small subarachnoid hemorrhage for which she has been treated prophylactically with Keppra. 1. Recent bacteremia and port infection -s/p port removal -Hospitalization records reviewed -Patient completed IV course of meropenem -She will need to complete an additional 14 days of Cefdinir; pharmacy has replaced with Suprax since a comparable third generation cephalosporin 2. Fabry's disease -Resume tacrolimus and sirolimus -Resume prednisone -Dilaudid as needed 3. HTN -Resume valsartan and metoprolol -Hold amlodipine since BP running on lower end 4. DM -SSI per protocol 5. Depression/anxiety -Resume home meds -Further management per psychiatry 6. Cardiomyopathy, CHF -Euvolemic -Continue ARB and BB 7. Subarachnoid hemorrhage -Consult neuro to see if Keppra needs to be continued DVT prophylaxis: Ambulating Anusha Scott MD Apr 06, 2018 12:01
[2018-04-06 12:18] LABS: ALBUMIN 2.5 GM/DL (3.4-5.0); AST (GOT) 424 U/L (15-37); BICARBONATE 20.5 MEQ/L (21.0-32.0); BLOOD UREA NITROGEN 30 MG/DL (7-18); CALCIUM 8.5 MG/DL (8.5-10.1); CHLORIDE 100 MEQ/L (98-107); CREATININE 2.31 MG/DL (0.50-1.00); GLOMERULAR FILTRATION RATE 24 ML/MIN (>89); GLUCOSE,RANDOM 249 MG/DL (74-106); SODIUM (NA) 133 MEQ/L (136-145)
[2018-04-06 12:20] LABS: ALT (GPT) 465 U/L (10-53); CHOLESTEROL 322 MG/DL (120-200)
[2018-04-06 12:22] LABS: ALKALINE PHOSPHATASE 527 U/L (45-117); CHOLESTEROL/ HDL RATIO 8.49 RATIO; HDL CHOLESTEROL 37.9 MG/DL (40.0-60.0); TOTAL BILIRUBIN ADULT 0.3 MG/DL (0.2-1.0); TRIGLYCERIDES 781 MG/DL (42-150)
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
--- NOTE | 2018-04-06 15:14 | EKG ---
Date Performed: 04/06/2018 Time Performed: 13:29:26 PTAGE: 38 years EKG: Sinus rhythm WITH SHORT MT INTERVAL POSSIBLE LEFT ATRIAL ENLARGEMENT BORDERLINE ECG NO PREVIOUS TRACING DOCTOR: Sathish Nunes Interpretating Date/Time 04/06/2018 15:12:17
[2018-04-06 16:47] LABS: HEMOGLOBIN A1C 9.3 % (4.3-6.0)
[2018-04-06] MEDS: CEFIXIME 400 MG CAP PO SCH (18:21)
[2018-04-06] MEDS: TACROLIMUS 5 MG CAP PO SCH (18:22)
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
[2018-04-06 19:56] VITALS: BP 104/58; PULSE 72; RESP 16; TEMP 98.1; O2SAT 100
[2018-04-06] MEDS: MAGNESIUM OXIDE 400 MG TAB PO SCH (20:38)
[2018-04-06 21:13] VITALS: BP 120/67
[2018-04-07] MEDS: SIROLIMUS 2 MG TAB PO SCH (05:49)
[2018-04-07] MEDS: TACROLIMUS 5 MG CAP PO SCH (05:49)
[2018-04-07] MEDS: HYDROmorphone HCL 2 MG TAB PO PRN ×2 (06:03→12:50)
[2018-04-07 06:15] VITALS: BP 118/70; PULSE 60; RESP 18; TEMP 98; O2SAT 99
[2018-04-07] MEDS: INSULIN ASPART SUPPLEMENTAL SCALE SQ SCH ×2 (07:56→12:00)
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
--- NOTE | 2018-04-07 08:32 | PD.TTN ---
Patient Problems 1. Discharge planning 2. Medication compliance 3. Knowledge deficit 4. Lack of coping skills Progress Toward Goals Provider Present: Dr. Harjit Quezada Provider Input: 04/07/18 Nurse(s) Input: 04/09/18 Psychiatric Counselors Present: Laura Todd LCSW Psych Therapist Input: 04/09/18 Group Spec/RT/OT/BILLY Present: KAREN Nuñez Group Spec/RT/OT/BILLY Input: 04/09/18 Does not attend groups and is anti social Laura Todd LCSW Apr 07, 2018 08:32
--- NOTE | 2018-04-07 08:52 | PD.TTN ---
Patient Problems 1. Discharge planning 2. Medication compliance 3. Knowledge deficit 4. Lack of coping skills Progress Toward Goals Provider Present: Dr. Harjit Quezada Provider Input: 04/07/18 discharge today Nurse(s) Input: 04/09/18 Psychiatric Counselors Present: Laura Todd LCSW Psych Therapist Input: 04/09/18 Group Spec/RT/OT/BILLY Present: KAREN Nuñez Group Spec/RT/OT/BILLY Input: 04/09/18 Does not attend groups and is anti social Laura Todd LCSW Apr 07, 2018 08:52
[2018-04-07] MEDS: levETIRAcetam 500 MG TAB PO SCH (08:58)
[2018-04-07] MEDS: METOPROLOL SUCCINATE 50 MG EXTENDED RELEASE TAB PO SCH (08:58)
[2018-04-07] MEDS: PANTOPRAZOLE SOD 40 MG DELAYED RELEASE TAB PO SCH (08:58)
[2018-04-07] MEDS: GABAPENTIN 300 MG CAP PO SCH ×2 (08:58→12:46)
[2018-04-07] MEDS: VALSARTAN 80 MG TAB PO SCH (08:58)
[2018-04-07] MEDS: predniSONE 10 MG TAB PO SCH (08:58)
[2018-04-07] MEDS: MAGNESIUM OXIDE 400 MG TAB PO SCH (08:58)
[2018-04-07] MEDS: SERTRALINE HCL 100 MG TAB PO SCH (08:58)
[2018-04-07] MEDS: ALPRAZolam 1 MG TAB PO SCH (09:00)
[2018-04-07] MEDS ORDERED: CEFD300C PO (11:32)
[2018-04-07] MEDS ORDERED: DIOV80TA4 PO (11:32)
--- NOTE | 2018-04-07 11:32 | HHI.PR ---
Subjective Remarks Follow up for recent bacteremia/port infection, fabry's disease, HTN, DM, CHF. The patient is seen resting in bed. She has no medical complaints including no fever/chills, chest pain, shortness of breath, abdominal pain, nausea/vomiting, or diarrhea. Vital signs reviewed and stable. Objective Vitals Vital Signs Date Time Temp Pulse Resp B/P (MAP) Pulse Ox O2 Delivery O2 Flow Rate FiO2 04/07/18 06:15 98.0 60 18 118/70 (86) 99 04/06/18 21:13 120/67 (84) 04/06/18 19:56 98.1 72 16 104/58 (73) 100 I/O 04/06/18 04/06/18 04/06/18 04/07/18 04/07/18 04/07/18 07:00 15:00 23:00 07:00 15:00 23:00 Intake Total 120 ml Balance 120 ml Intake Oral 120 ml Result Diagram: 04/06/18 1020 Objective Remarks GENERAL: Well-nourished, well-developed middle-aged female patient in [facility]. SKIN: Warm and dry. No rash. Left chest incision, CDI. Right upper extremity with ecchymosis. HEENT: Normocephalic. Atraumatic. Pupils equal and round. Mucous membranes pink and moist. CARDIOVASCULAR: Regular rate and rhythm. No murmur appreciated. RESPIRATORY: No accessory muscle use. Clear to auscultation. Breath sounds equal bilaterally. GASTROINTESTINAL: Abdomen soft, non-tender, nondistended. Normoactive bowel sounds x4. MUSCULOSKELETAL: No obvious deformities. Extremities without clubbing, cyanosis , or edema. NEUROLOGICAL: Awake and alert. No obvious cranial nerve deficits. Motor grossly within normal limits. Moving all extremities spontaneously. Normal speech. Medications and IVs Current Medications Medications (Trade) Dose Ordered Sig/[place] Route Start Time Stop Time Status Last Admin (Dilaudid) 2 mg Q4H PRN PO 04/04/18 17:20 04/07/18 12:50 (Ambien) 10 mg HS PRN PO 04/04/18 21:00 04/05/18 23:12 (Norvasc) 10 mg DAILY PO 04/05/18 09:00 Future Hold 04/06/18 09:05 (Keppra) 500 mg Q12HR PO 04/04/18 21:00 04/07/18 08:58 (Protonix) 40 mg DAILY PO 04/05/18 09:00 04/07/18 08:58 (Zoloft) 100 mg DAILY PO 04/05/18 09:00 04/07/18 08:58 ([place] 10-325 Mg) 1 tab Q4H PRN PO 04/04/18 17:15 04/06/18 21:19 (Xanax) 1 mg BID PO 04/04/18 21:00 04/06/18 09:04 (Deltasone) 10 mg DAILY PO 04/05/18 09:00 04/07/18 08:58 (Rapamune) 2 mg DAILY@06 PO 04/05/18 09:00 04/07/18 05:49 (Diovan) 80 mg DAILY PO 04/05/18 09:00 04/07/18 08:58 (Tylenol) 650 mg Q4H PRN PO 04/05/18 12:45 (Milk Of Magnesia Liq) 30 ml DAILY PRN PO 04/05/18 12:45 (Mag-Al Plus Susp Liq) 30 ml Q6H PRN PO 04/05/18 12:45 (Suprax) 400 mg Q24H PO 04/05/18 18:00 04/06/18 18:21 (D50w (Vial) Inj) 50 ml UNSCH PRN IV PUSH 04/05/18 16:00 (Glucagon Inj) 1 mg UNSCH PRN OTHER 04/05/18 16:00 (NovoLOG SUPPLEMENTAL SCALE) 1 ACHS SLIDING SCALE SQ 04/05/18 17:00 04/07/18 12:00 (Toprol Xl) 50 mg DAILY PO 04/06/18 21:00 04/07/18 08:58 (Neurontin) 300 mg TID PO 04/06/18 13:00 04/07/18 12:46 (Mag-Ox) 400 mg Q12HR PO 04/06/18 21:00 04/07/18 08:58 (Prograf) 5 mg DAILY@,18 PO 04/06/18 18:00 04/07/18 05:49 A/P Assessment and Plan 38-year-old complicated female patient with history of Fabry's disease, CKD, DM , HTN, depression, anxiety, neuropathy, and recent treatment for bacteremia secondary to port infection admitted to psychiatry under Maldonado act after she intentionally injected Xanax into her IV and locked herself in the bathroom during previous hospitalization. She had apparently fell and sustained a small subarachnoid hemorrhage for which she has been treated prophylactically with Keppra. Recent bacteremia and port infection -Hospitalization records reviewed, s/p port removal and completed IV course of meropenem -She will need to complete an additional 14 days of Cefdinir; pharmacy has replaced with Suprax since a comparable third generation cephalosporin -Continue Cefdinir upon discharge Fabry's disease: chronic -Resume tacrolimus and sirolimus -Resume prednisone -Dilaudid as needed HTN -Resume valsartan and metoprolol -Hold amlodipine since BP running on lower end -Well-controlled DM -SSI per protocol Depression/anxiety -Resume home meds -Continue management per psychiatry Cardiomyopathy, CHF: patient is euvolemic -Continue ARB and BB Subarachnoid hemorrhage -Consult neuro to see if Keppra needs to be continued -Will continue Keppra 500mg bid for now -EEG ordered and pending DVT prophylaxis: Ambulating Grecia Askew PA-C Apr 07, 2018 11:32 am
--- NOTE | 2018-04-07 12:19 | PD.TTN ---
Patient Problems 1. Discharge planning 2. Medication compliance 3. Knowledge deficit 4. Lack of coping skills Progress Toward Goals Provider Present: Dr. Harjit Quezada Provider Input: 04/07/18 discharge today AMA Nurse(s) Input: 04/09/18 not cooperative discharge oriented (Lesli) Psychiatric Counselors Present: Laura Todd LCSW Psych Therapist Input: 04/09/18 not open to talk but accepted substance abuse resource packet Group Spec/RT/OT/BILLY Present: KAREN Nuñez Group Spec/RT/OT/BILLY Input: 04/09/18 Does not attend groups and is anti social Laura Todd LCSW Apr 07, 2018 12:19
== END 2018-04-07 13:15 | disposition left against medical advice (07) | DRG 882 ==
LOC: NEPJ 15:45 → NEDA 04-05 12:39 → H260 04-05 15:13
PROVIDERS: ADMIT Psychiatry & Neurology Psychiatry; ATTEND Psychiatry & Neurology Psychiatry
DX: F43.25 Adjustment disorder with mixed disturbance of emotions and conduct (principal); I42.9 Cardiomyopathy, unspecified; E11.22 Type 2 diabetes mellitus with diabetic chronic kidney disease; I50.9 Heart failure, unspecified; I13.0 Hypertensive heart and chronic kidney disease with heart failure and stage 1 through stage 4 chronic kidney disease, or unspecified chronic kidney disease; S06.6X0A Traumatic subarachnoid hemorrhage without loss of consciousness, initial encounter; E75.21 Fabry (-Anderson) disease; Z94.0 Kidney transplant status; T42.4X1A Poisoning by benzodiazepines, accidental (unintentional), initial encounter; G47.00 Insomnia, unspecified; N18.9 Chronic kidney disease, unspecified; E11.40 Type 2 diabetes mellitus with diabetic neuropathy, unspecified; F60.89 Other specific personality disorders; E11.649 Type 2 diabetes mellitus with hypoglycemia without coma; F17.210 Nicotine dependence, cigarettes, uncomplicated; W18.30XA Fall on same level, unspecified, initial encounter; Z79.4 Long term (current) use of insulin; Z88.1 Allergy status to other antibiotic agents; Y92.231 Patient bathroom in hospital as the place of occurrence of the external cause; Z62.810 Personal history of physical and sexual abuse in childhood
CPT/HCPCS: 80053; 80061; 82948; 83036; 93005; 99285; J1815; J7507; J7512; J7520